=== PATIENT | male | born 1985 | race Caucasian/White ===

== ENCOUNTER 2016-12-12 18:36 | Emergency (ER) | payer SELFPAY ==
[~2016-12-12] VITALS: Ht 190.5 cm; Wt 72.0 kg
--- NOTE | 2016-12-12 18:59 | PD ---
HPI Chief Complaint: Eye Problems/Injury Time Seen by Provider: 18:52 Travel History International Travel<30 days: No Contact w/Intl Traveler<30days: No Traveled to known affect area: No History of Present Illness HPI 31-year-old male presents to emergency Department with complaint of left eye blurry vision and left eye discomfort since last night. Says it feels like he has something in his left eye. Denies injury or known foreign body. He is supposed wear corrective lenses and has a stigmatism and says his vision in his left eye has slightly decreased causing the blurriness; this has been progressively getting worse of the past 3 months. He has not worn his glasses in the last 3 months either. Denies fever, vomiting. Denies photophobia. Denies drainage from the eye. Has not taken any medications or tried a treatment facility symptoms. Allergies to penicillin. Has no medical complaints. No other modifying factors or associated signs and symptoms. PFSH Past Medical History Medical History: Denies Significant Hx Medical other: Yes (LEFT EYE STIGMATISM) Tetanus Vaccination: < 5 Years Influenza Vaccination: No Past Surgical History Surgical History: No Previous Surgery Oral Surgery: Yes (CYST REMOVAL LEFT SIDE JAW) Social History Alcohol Use: Yes (OCC) Tobacco Use: Yes (1/2 PPD) Substance Use: No Allergies-Medications (Allergen,Severity, Reaction): Coded Allergies: Penicillin (Verified Allergy, Unknown, 12/12/16) Reported Meds & Prescriptions Reported Meds & Active Scripts Active Ibuprofen 800 Mg Tab 800 Mg PO Q6HR PRN Review of Systems Except as stated in HPI: all other systems reviewed are Neg Physical Exam Narrative GENERAL: Well-nourished, well-developed male patient, in no acute distress SKIN: Warm and dry. HEAD: Atraumatic. Normocephalic. EYES: Pupils equal and round at 3 mm with brisk reaction. PERRLA. EOMI. L 20/ 50; R 20/30; B 20/40. Left lid eversion with no foreign body noted. Left eye without scleral erythema and without lid edema. No orbital tenderness, erythema or cellulitis. Left eye without photophobia. No consensual photophobia. No scleral icterus. Clear drainage. Hernandez lamp exam normal. Tonometry reading of left eye 17. ENT: Mucosa pink and moist. Airway patent. NECK: Trachea midline. CARDIOVASCULAR: Regular rate. RESPIRATORY: No accessory muscle use. GASTROINTESTINAL: Flat. NEUROLOGICAL: Awake and alert. Oriented 3. No obvious cranial nerve deficits. Motor grossly within normal limits. Normal speech. PSYCHIATRIC: Appropriate mood and affect; insight and judgment normal. Data Data Last Documented VS Vital Signs Date Time Temp Pulse Resp B/P Pulse Ox O2 Delivery O2 Flow Rate FiO2 12/12/16 19:05 98.7 99 20 130/69 100 Room Air Orders Ibuprofen (Motrin) (12/12/16 19:00) [facility] Medical Decision Making Medical Screen Exam Complete: Yes Emergency Medical Condition: Yes Medical Record Reviewed: Yes Differential Diagnosis Corneal abrasion, foreign body, ocular headache, nonspecific eye discomfort Narrative Course 31-year-old male with left eye discomfort. Eye exam is unremarkable. Tonometry reading of eyes 17. Patient does have history of stigmatism and has not worn his eyeglasses for 3 months. He reports blurriness to the left eye which is progressively getting worse over the past 3 months. Mandatory referral placed for patient to follow up with time study technologist. Instructed patient to follow up with ophthalmology on Wednesday. Patient verbalizes understanding and agreement with treatment plan. Patient is medically cleared and stable for discharge. Discussed reasons to return to the emergency department. Instructed patient to follow up with primary care provider. Patient agrees with treatment plan. The patients vital signs are stable and the patient is stable for outpatient follow-up and treatment. Patient discharged home, stable and in no acute distress. Diagnosis Primary Impression: Discomfort of left eye Referrals: [facility] Primary Care Physician Patient Instructions: Eye Pain (ED), General Instructions Departure Forms: Tests/Procedures, Work Release Enter return to work date: December 13, 2016 Additional Instructions: Ibuprofen or Tylenol as directed and as needed for pain Follow-up with ophthalmology on Wednesday Return to the emergency department immediately with worsening of symptoms Med/Other Pt SpecificInfo: Prescription(s) given Scripts Ibuprofen 800 Mg [id number] Mg PO Q6HR PRN (PAIN) #30 TAB Ref 0 Prov:Flavia Torres 12/12/16 Disposition: 01 DISCHARGE HOME Condition: Stable Flavia Torres December 12, 2016 18:59
[2016-12-12] MEDS ORDERED: IBUPROFEN 800 MG TAB PO ONE (19:00)
[2016-12-12] MEDS ORDERED: IBUP800T23 PO (19:01)
[2016-12-12 19:05] VITALS: BP 130/69; PULSE 99; RESP 20; TEMP 98.7; O2SAT 100
== END 2016-12-12 19:20 | disposition home or self-care (01) ==
LOC: NEPK 18:36
DX: H57.8 Other specified disorders of eye and adnexa (principal); H53.8 Other visual disturbances; H52.202 Unspecified astigmatism, left eye; F17.200 Nicotine dependence, unspecified, uncomplicated
CPT/HCPCS: 99283

== ENCOUNTER 2017-01-23 18:27 | Emergency (ER) | payer SELFPAY ==
[~2017-01-23] VITALS: Ht 190.5 cm; Wt 75.0 kg
[~2017-01-23 18:27] MED LIST: IBUP800T23 PO
[2017-01-23 18:28] VITALS: BP 130/73; PULSE 110; RESP 15; TEMP 97.8; O2SAT 98
[2017-01-23] MEDS ORDERED: KETOROLAC TROMETHAMINE 60 MG/2 ML (IM) VIAL IM ONE (18:45)
[2017-01-23] MEDS ORDERED: DIAZEPAM 5 MG TAB PO ONE (18:45)
[2017-01-23] MEDS ORDERED: KETOROLAC TROMETHAMINE 30 MG/ML (IVP) VIAL IV PUSH ONE (18:45)
--- NOTE | 2017-01-23 18:48 | PD ---
HPI Chief Complaint: Back/ Neck Pain or Injury Time Seen by Provider: 18:38 Travel History International Travel<30 days: No Contact w/Intl Traveler<30days: No Traveled to known affect area: No History of Present Illness HPI 31-year-old male here for evaluation of neck pain and stiffness. Patient ports that the symptoms having going on for a month and a half and started after waking up from sleep one morning. He denies trauma. Pain has been persistent, is intermittently worse at times, currently moderate, worse with movement and palpation, mainly over his left neck and left shoulder. He denies fevers or chills. No paresthesias or motor deficits. No illicit drugs or IVDU. PFSH Past Surgical History Oral Surgery: Yes (CYST REMOVAL LEFT SIDE JAW) Social History Alcohol Use: Yes (OCC) Tobacco Use: Yes (1/2 PPD) Substance Use: No Allergies-Medications (Allergen,Severity, Reaction): Coded Allergies: Penicillin (Verified Allergy, Unknown, 01/23/17) Reported Meds & Prescriptions Reported Meds & Active Scripts Active No Active Prescriptions or Reported Medications Review of Systems Except as stated in HPI: all other systems reviewed are Neg Physical Exam Narrative GENERAL: Well-developed, well-nourished, sitting comfortably on stretcher, no acute distress. SKIN: Focused skin assessment warm/dry. Tattoos throughout body. No rashes. HEAD: Atraumatic. Normocephalic. EYES: Pupils equal and round. No scleral icterus. No injection or drainage. ENT: Mucous membranes pink and moist. NECK: Trachea midline. No JVD. Left trapezius muscle is diffusely tender and appears to be in slight spasm. There is no midline vertebral step-off or tenderness. Patient is able to move his head/neck the left and to the right, however it causes a lot of discomfort when looking to the left. CARDIOVASCULAR: Regular rate and rhythm. No murmur appreciated. RESPIRATORY: No accessory muscle use. Clear to auscultation. Breath sounds equal bilaterally. GASTROINTESTINAL: Abdomen soft, non-tender, nondistended. MUSCULOSKELETAL: No obvious deformities. No clubbing. No cyanosis. No edema. NEUROLOGICAL: Awake and alert. No obvious cranial nerve deficits. Motor grossly within normal limits. Normal speech. Normal motor/sensory in all 4 extremities. PSYCHIATRIC: Appropriate mood and affect; insight and judgment normal. Data Data Last Documented VS Vital Signs Date Time Temp Pulse Resp B/P Pulse Ox O2 Delivery O2 Flow Rate FiO2 01/23/17 18:35 16 01/23/17 18:28 97.8 110 130/[address] Soft Tiss Neck W/O Iv Cont (01/23/17 ) Ketorolac Inj (Toradol Inj) (01/23/17 18:45) Diazepam (Valium) (01/23/17 18:45) Ketorolac Inj (Toradol Inj) (01/23/17 18:45) MDM Medical Decision Making Medical Screen Exam Complete: Yes Emergency Medical Condition: Yes Differential Diagnosis Torticollis, neck mass, meningitis/encephalitis unlikely Narrative Course Vital signs reviewed. Heart rate improved to [address] soft tissue neck: CONCLUSION: Unremarkable with limited noncontrast exam. Patient was made aware of all findings. He was provided Toradol and Valium here in the emergency department. Most likely diagnosis is torticollis/muscle spasm. Plan is to discharge him home with Naprosyn and a muscle relaxant and PMD follow-up this week. He was informed on when to return to the emergency department. He verbalizes understanding and agreement with plan. Diagnosis Primary Impression: Torticollis Referrals: [facility] 3 days Primary Care Physician 3 days Additional Instructions: Follow-up with a primary care physician or in the [place] clinic this week. Return to the emergency department for worsening symptoms or any other concerns. Scripts Methocarbamol (Robaxin)500 Mg [id number] Mg PO TID #20 TAB Ref 0 Prov:Josue Oneil MD 01/23/17 Naproxen 500 Mg [id number] Mg PO BID #20 TAB Ref 0 Prov:Josue Oneil MD 01/23/17 Disposition: 01 DISCHARGE HOME Condition: Stable Josue Oneil MD Jan 23, 2017 18:48
--- NOTE | 2017-01-23 19:22 | RADRPT ---
EXAM DATE/TIME: 01/23/2017 19:03 [facility] COMPARISON: No previous studies available for comparison. INDICATIONS : Neck pain and limited range of motion. No known trauma. RADIATION DOSE: 13.44 CTDIvol (mGy) MEDICAL HISTORY : None SURGICAL HISTORY : Cyst removed from left jaw. ENCOUNTER: Initial ACUITY: 1 month PAIN SCORE: 8/10 LOCATION: neck TECHNIQUE: Volumetric scanning of the neck was performed. Using automated exposure control and adjustment of th e mA and/or kV according to patient size, radiation dose was kept as low as reasonably achievable to obtain optimal diagnostic quality images. DICOM format image data is available electronically for re view and comparison. FINDINGS: NASOPHARYNX: The nasopharyngeal airway has a normal configuration. No mucosal thickening or mass is seen. OROPHARYNX: The intrinsic muscles of the tongue are symmetric. The tonsillar pillars are intact. The prevertebr al soft tissues are not thickened. LARYNX: The supraglottic, glottic, and infraglottic structures are intact. PARAPHARYNGEAL: The parapharyngeal space is intact. SALIVARY GLANDS: The parotid and submandibular glands are intact. LYMPH NODES: No enlarged or necrotic-appearing nodes. THYROID: Homogeneous enhancement without evidence of nodule. BONES: Unremarkable. CONCLUSION: Unremarkable with limited noncontrast exam. Candido Grace MD on January 23, 2017 at 19:18 Board Certified Radiologist. This report was verified electronically.
[2017-01-23] MEDS ORDERED: ROBA500T PO (19:29)
[2017-01-23] MEDS ORDERED: NAPR500T PO (19:29)
== END 2017-01-23 20:11 | disposition home or self-care (01) ==
LOC: NEPD 18:27
DX: M43.6 Torticollis (principal); Z88.0 Allergy status to penicillin; F17.210 Nicotine dependence, cigarettes, uncomplicated
CPT/HCPCS: 70490; 96372; 99284; J1885